=== PATIENT | male | born 1995 | race Caucasian/White ===

== ENCOUNTER 2016-08-03 18:14 | Emergency (ER) | payer OTHER ==
[~2016-08-03] VITALS: Ht 167.6 cm; Wt 61.2 kg
--- NOTE | 2016-08-03 18:37 | ED EENT ---
History of Present Illness General Chief Complaint: Facial Problems Stated Complaint: MOUTH INJURY PLAYING BASEBALL Source: patient Exam Limitations: no limitations (LUBNA RUTHERFORD APRN) History of Present Illness Time seen by provider: 18:34 Initial Comments To ER per private vehicle with reports of mouth injury that occurred while playing baseball. Patient is from [place] here [place] [employer]. Patient was running when he slid into a fence. He has a laceration along the left vermilion border lower lip that is a through and through to the buccal mucosa. He also has a severe intrusion injury of 2 teeth on the maxilla. No loss of consciousness. No neck pain. No nausea or headache. No nasal injury. Timing/Duration: abrupt Severity: moderate Location: mouth Associated Symptoms: denies symptoms (LUBNA RUTHERFORD APRN) Allergies and Home Medications Allergies Coded Allergies: No Known Drug Allergies (Unverified , 08/03/16) Home Medications Amoxicillin 500 Mg Capsule, 500 MG PO TID, #30 Prescribed by: LUBNA RUTHERFORD on 08/03/16 2014 Hydrocodone/Acetaminophen 1 Each Tablet, 1 EACH PO Q6H PRN for PAIN-MODERATE TO SEVERE, #30 Prescribed by: LUBNA RUTHERFORD on 08/03/16 2014 Ondansetron 8 Mg Tab.rapdis, 8 MG PO Q6H, #10 Prescribed by: LUBNA RUTHERFORD on 08/03/16 2014 Review of Systems Constitutional: see HPI Eyes: No Symptoms Reported Ears: No Symptoms Reported Nose: no symptoms reported Mouth: see HPI Throat: no symptoms reported Respiratory: no symptoms reported Cardiovascular: no symptoms reported Musculoskeletal: no symptoms reported Skin: no symptoms reported (LUBNA RUTHERFORD APRN) Past Vbbnont-Oznbja-Aiymfs Hx Patient Social History Recent Foreign Travel: No Contact w/Someone Who Travel: No (LUBNA RUTHERFORD APRN) Physical Exam Vital Signs Vital Sign - Last 12Hours 08/03/16 18:22 Temp 99.0 Pulse 102 Resp 18 B/P (MAP) 136/91 Pulse Ox 98 (CARMELO LUA MD) General Appearance: WD/WN, no apparent distress Eyes: bilateral eye EOMI, bilateral eye PERRL, bilateral eye normal inspection Ears: bilateral ear TM normal, bilateral ear auricle normal, bilateral ear canal normal Mouth/Throat: other (laceration along the left vermilion border that measures 0.5 cm. There is another laceration to the buccal mucosa just inferior to this. There is no dental injury to the mandible. There is a dental injury to teeth number 8 and [address] being posteriorly displaced) Neck: non-tender, full range of motion Respiratory: normal breath sounds, no respiratory distress, no accessory muscle use Gastrointestinal: normal bowel sounds, non tender, soft Neurologic/Psychiatric: alert, normal mood/affect, oriented x 3 Skin: normal color, warm/dry (LUBNA RUTHERFORD APRN) Nose: normal inspection Mouth/Throat: pharynx normal, other (laceration along the left vermilion border that measures 0.5 cm. There is another laceration to the buccal mucosa just inferior to this. There is no dental injury to the mandible. There is a dental injury to teeth number 8 and 9 that is a intrusion/luxation injury ) Cardiovascular: regular rate, rhythm, no murmur (CARMELO LUA MD) Laceration Repair : Wound Location: Face Wound Length (cm): 0.5 Wound's Depth, Shape: sub Q Wound Explored: clean Anesthesia: Lidocaine w/ Epi Suture: Ethlion Suture Size: 5-0 Number of Sutures: 2 Layer Closure?: 0 Number Deep Layer Sutures: 0 Progress Anesthetized with 2 percent lidocaine with epinephrine. Wound then scrubbed with chlorhexidine/saline solution. Wound then closed with 2 simple interrupted sutures size 5-0 Ethilon. (LUBNA RUTHERFORD APRN) Progress/Results/Core Measures Results/Orders My Orders Orders - CARMELO LUA MD Dipht,Pertuss(Acell),Tet Adult (Boostrix (08/03/16 18:42) (CARMELO LUA MD) Medications Given in ED Current Medications Medications Dose Ordered Sig/Brody Route Start Time Stop Time Status Last Admin Dose Admin Lidocaine/ Epinephrine 1 ml ONCE ONCE INJ 08/03/16 19:00 08/03/16 19:01 DC 08/03/16 19:15 1 ML (CARMELO LUA MD) Vital Signs/I&O Vital Sign - Last 12Hours 08/03/16 18:22 Temp 99.0 Pulse 102 Resp 18 B/P (MAP) 136/91 Pulse Ox 98 (CARMELO LUA MD) Progress Note : Progress Note Seen and evaluated. I agree with above except as indicated and I have reviewed the plan of care. Pending CT Face and we will update tetanus. Declines pain medication. Wound closure by Lubna Rutherford APRN. Reduction of tooth subluxation and associated maxillary bone fracture done by me using simple traction. Teeth splinted in place with dental wire and blocks glued to the teeth 7 through 10. Patient tolerated procedure well. Discharged home with return precautions as noted. Patient and family verbalized understanding instructions and agreement with plan. (CARMELO LUA MD) Diagnostic Imaging Diagonstic Imaging: CT Plain Films/CT/US/NM/MRI: facial bones, c-spine, head Comments NAME: KJ CUEVAS [facility] REC#: [id number] PT STATUS: REG ER : 1995 PHYSICIAN: LUBNA RUTHERFORD APRN ADMIT DATE: 08/03/16/ER Signed Date of Exam: 08/03/16 CT HEAD/FACE/CERVICAL WO CLINICAL INDICATION: Patient playing baseball ran into [employer]. Patient has severe mouth and teeth injury. EXAM: Axial Head CT without IV contrast. Axial Maxillofacial CT scan without IV contrast with sagittal and coronal reformations. Axial CT scan of the cervical spine with sagittal and coronal reformations. COMPARISON: None. FINDINGS: Head CT: There is no evidence of acute cerebral infarct, intracranial hemorrhage, or gross mass effect. There is normal holguin-white matter distinction. The brain parenchymal volume appears appropriate for patient's age. There is no significant midline shift or herniation. There is no evidence of hydrocephalus. The basal cisterns are unremarkable. Maxillofacial CT: There is a partial fracture of the anterior aspect of the midline maxilla involving the right and left medial incisors. There is roughly 4 mm of posterior displacement of the teeth. There is no other fracture or dislocation seen. There is note of chronic-appearing clefting of the hard palate bilaterally of the bony structures. There are postop changes to the mandibular symphysis and bilateral maxillary regions which appear chronic. There is some bony irregularity of the nasal bone with a lucency seen through the left side. This is concerning for fracture, but is of unknown age. There is minimal mucosal thickening involving both maxillary sinuses. There is small amount of mucosal thickening in the sphenoid sinus and ethmoid sinus. Cervical spine: There is no acute cervical spine fracture or dislocation. The intervertebral disc heights and intervertebral heights are within normal limits. There is no significant prevertebral soft tissue swelling. The visualized lung apices are within normal limits. The neck soft tissue structures show no significant abnormality. IMPRESSION: 1: There is a partial fracture of the anterior aspect of the midline maxilla with posterior displacement of the right and left medial incisor. 2: There is bony irregularity and disruption of the nasal bone concerning for fracture of unknown age. Clinical correlation for pain in the nose region would help better evaluate. 3: There is no other concern for maxillofacial fracture. 4: There is no evidence of acute intracranial process or intracranial hemorrhage. 5. Cervical spine is unremarkable with no acute fracture or dislocation. Dictated by: Dictated on workstation # [id number] Dict: 08/03/161926 Trans: 08/03/162331 Interpreted by: STEVEN TOLENTINO MD Electronically signed by: STEVEN TOLENTINO MD 08/03/162331 (CARMELO LUA MD) Departure Communication Progress Notes Tooth number 8 and [address] Lua. These will be splinted in place. Patient and his father intend to fly home to [place] this to follow up with [facility] in their hometown on Saturday. Patient has previously been established with [facility] due to facial fractures requiring surgical treatment. (LUBNA RUTHERFORD APRN) Impression Impression: Primary Impression: Maxillary fracture Additional Impressions: Dental injury Posterior diplacement of tooth 8 & 9 Disposition: HOME, SELF-CARE Condition: Stable Departure-Patient Inst. Decision time for Depature: 20:11 (LUBNA RUTHERFORD APRN) Referrals: NO,LOCAL PHYSICIAN (PCP) Primary Care Physician Patient Instructions: Skull and Facial Fractures (DC) Add. Discharge Instructions: 1. Follow-up with your oral surgeon or dentist on Saturday 2. Antibiotics as directed 3. Pain medication as needed and nausea medication as needed. 4. Very soft diet small bites until then. All discharge instructions reviewed with patient and/or family. Voiced understanding. Scripts Amoxicillin (Amoxicillin) 500 Mg Capsule 500 MG PO TID, #30 CAP Prov: LUBNA RUTHERFORD APRN 08/03/16 Ondansetron (Zofran Odt) 8 Mg Tab.rapdis 8 MG PO Q6H, #10 TAB Prov: LUBNA RUTHERFORD DCS ENGINEER 08/03/16 Hydrocodone/Acetaminophen ([place] 5-325 Tablet) 1 Each Tablet 1 EACH PO Q6H Y for PAIN-MODERATE TO SEVERE, #30 TAB Prov: LUBNA RUTHERFORD DCS ENGINEER 08/03/16 Images Mouth/Nose 1 - Fracture Tooth, Swelling, Tenderness (CARMELO LUA MD) LUBNA RUTHERFORD APRN August 03, 2016 18:37 CARMELO LUA MD August 03, 2016 18:50
[2016-08-03] MEDS ORDERED: TETANUS,DIPTH,PERTUSS P/F (BOOSTRIX) 0.5 ML VIAL IM STA (18:42)
[2016-08-03] MEDS ORDERED: LIDOCAINE/EPI 1%-1:100,000 (XYLOCAINE) 20ML INJ ONE (19:00)
--- NOTE | 2016-08-03 19:45 | Diagnostic Imaging Report ---
CLINICAL INDICATION: Patient playing baseball ran into [employer]. Patient has severe mouth and teeth injury. EXAM: Axial Head CT without IV contrast. Axial Maxillofacial CT scan without IV contrast with sagittal and coronal reformations. Axial CT scan of the cervical spine with sagittal and coronal reformations. COMPARISON: None. FINDINGS: Head CT: There is no evidence of acute cerebral infarct, intracranial hemorrhage, or gross mass effect. There is normal holguin-white matter distinction. The brain parenchymal volume appears appropriate for patient's age. There is no significant midline shift or herniation. There is no evidence of hydrocephalus. The basal cisterns are unremarkable. Maxillofacial CT: There is a partial fracture of the anterior aspect of the midline maxilla involving the right and left medial incisors. There is roughly 4 mm of posterior displacement of the teeth. There is no other fracture or dislocation seen. There is note of chronic-appearing clefting of the hard palate bilaterally of the bony structures. There are postop changes to the mandibular symphysis and bilateral maxillary regions which appear chronic. There is some bony irregularity of the nasal bone with a lucency seen through the left side. This is concerning for fracture, but is of unknown age. There is minimal mucosal thickening involving both maxillary sinuses. There is small amount of mucosal thickening in the sphenoid sinus and ethmoid sinus. Cervical spine: There is no acute cervical spine fracture or dislocation. The intervertebral disc heights and intervertebral heights are within normal limits. There is no significant prevertebral soft tissue swelling. The visualized lung apices are within normal limits. The neck soft tissue structures show no significant abnormality. IMPRESSION: 1: There is a partial fracture of the anterior aspect of the midline maxilla with posterior displacement of the right and left medial incisor. 2: There is bony irregularity and disruption of the nasal bone concerning for fracture of unknown age. Clinical correlation for pain in the nose region would help better evaluate. 3: There is no other concern for maxillofacial fracture. 4: There is no evidence of acute intracranial process or intracranial hemorrhage. 5. Cervical spine is unremarkable with no acute fracture or dislocation. Dictated by: Dictated on workstation # [id number]
[2016-08-03] MEDS ORDERED: RX-ONDANSETRON 4 MG ODT (ZOFRAN) PPK #4 PO STA (20:06)
[2016-08-03] MEDS ORDERED: HYDR-757 PO (20:14)
[2016-08-03] MEDS ORDERED: AMOX500C2 PO (20:14)
[2016-08-03] MEDS ORDERED: ONDA8TAB9 PO (20:14)
[2016-08-03] MEDS ORDERED: AUGMENTIN 875 MG TAB (AMOXICILLIN/CLAVULANATE) PO SCH (20:15)
[2016-08-03] MEDS ORDERED: RX-HYDROCODONE/APAP 5/325 MG #4 TAB PK PO PRN (20:15)
[2016-08-03 21:20] VITALS: BP 119/71
== END 2016-08-03 21:20 | disposition home or self-care (01) ==
LOC: ER 18:17
DX: S01.511A Laceration without foreign body of lip, initial encounter (principal); S03.2XXA Dislocation of tooth, initial encounter; S02.40DA Maxillary fracture, left side, initial encounter for closed fracture; S02.40CA Maxillary fracture, right side, initial encounter for closed fracture; Z23 Encounter for immunization; W22.09XA Striking against other stationary object, initial encounter; Y92.320 Baseball field as the place of occurrence of the external cause; Y93.64 Activity, baseball; Y99.8 Other external cause status
CPT/HCPCS: 70450; 70486; 72125; 90471; 90715; 99283